=== PATIENT | female | born 1935 | race Hispanic/Latino ===

== ENCOUNTER 2018-10-31 11:30 | Emergency (ER) | payer MEDICARE ==
[2018-10-31 11:37] VITALS: BMI 23.9
[2018-10-31 11:38] VITALS: RESP 18
--- NOTE | 2018-10-31 11:53 | ED PDOC ---
Arrival/HPI - General Chief Complaint: Cough, Cold, Congestion Time Seen by Provider: 10/31/18 11:32 Historian: Patient - History of Present Illness Narrative History of Present Illness (Text): 10/31/18 11:53 A 83 year old female, whose past medical history includes hypertension, presents to the emergency department complaining of cough and rhinorrhia for the past day and a half. Patient reports associated sore throat and notes to taking wal- tussin for symptoms to some relief. Patient notes she initially went to the urgent care but found it was closed , prompting her to go to emergency room. Patient states she received a flu shot and a shingles shot recently. Patient also notes she took her hypertension medication today. Patient denies any fever, chills, shortness of breath, chest pain, myalgia, or any other complaints. PMD: Dr. Jj Time/Duration: 4-6 hours Symptom Onset: Gradual Symptom Course: Improving Activities at Onset: Light Context: Home Past Medical History - Provider Review Nursing Documentation Reviewed: Yes - Infectious Disease Hx of Infectious Diseases: None - Cardiac Hx Hypertension: Yes Hx Pacemaker: No - Neurological Hx Paralysis: No - Hematological/Oncological Hx Blood Transfusions: No Hx Blood Transfusion Reaction: No - Musculoskeletal/Rheumatological Hx Musculoskeletal Disorders: Yes - Gastrointestinal Hx Gastroesophageal Reflux: Yes - Psychiatric Hx Emotional Abuse: No Hx Physical Abuse: No Hx Substance Use: No - Surgical History Hx Hysterectomy: Yes Hx Orthopedic Surgery: Yes (r foot sx) - Anesthesia Hx Anesthesia Reactions: Yes Hx Malignant Hyperthermia: No - Suicidal Assessment Feels Threatened In Home Enviroment: No Family/Social History - Physician Review Nursing Documentation Reviewed: Yes Family/Social History: No Known Family HX Smoking Status: Never Smoked Hx Alcohol Use: Yes (OCCASSIONAL) Hx Substance Use: No Allergies/Home Meds Allergies/Adverse Reactions: Allergies No Known Allergies Allergy (Verified 06/10/12 08:22) Home Medications: Home Meds Medication Instructions Recorded Confirmed Calcium Carbonate/Vitamin D 1 tab PO BID 06/10/12 06/10/12 [Calcium 600 W/Vitamin D] Omeprazole 20 mg PO HS 06/10/12 06/10/12 Aspirin [Aspir-Low] 81 mg PO DAILY 06/11/12 06/11/12 Cholecalciferol (Vitamin D3) [D3-5] 1,000 iu PO DAILY 06/11/12 06/11/12 Psyllium [Metamucil] 1 tbs PO DAILY 06/11/12 06/11/12 Review of Systems - Physician Review All systems were reviewed & negative as marked: Yes - Review of Systems Constitutional: absent: Fevers, Night Sweats ENT: Sore Throat, Rhinorrhea Respiratory: Cough. absent: SOB Cardiovascular: absent: Chest Pain Gastrointestinal: absent: Abdominal Pain Genitourinary Female: absent: Dysuria Musculoskeletal: absent: Arthralgias, Myalgias Skin: absent: Rash Neurological: absent: Headache Psychiatric: absent: Anxiety Physical Exam Vital Signs Reviewed: Yes Vital Signs Temp Pulse Resp BP Pulse Ox 10/31/18 11:37 97.6 F 79 18 137/87 96 Temperature: Afebrile Blood Pressure: Normal Pulse: Regular Respiratory Rate: Normal Appearance: Positive for: Well-Appearing, Non-Toxic Mental Status: Positive for: Alert and Oriented X 3 - Systems Exam Head: Present: Atraumatic, Normocephalic Pupils: Present: PERRL Extroacular Muscles: Present: EOMI Conjunctiva: Present: Normal Mouth: Present: Moist Mucous Membranes Pharnyx: Present: Normal. No: ERYTHEMA, EXUDATE, TONSILS ENLARGED, Peritonsilar Swelling Nose (Internal): Present: Normal Inspection, Rhinorrhea. No: No Active Bleeding Neck: Present: Normal Range of Motion. No: Meningeal Signs Respiratory/Chest: Present: Clear to Auscultation, Good Air Exchange. No: Respiratory Distress, Accessory Muscle Use Cardiovascular: Present: Regular Rate and Rhythm, Normal S1, S2. No: Murmurs Abdomen: No: Tenderness, Distention, Peritoneal Signs Back: Present: Normal Inspection. No: CVA Tenderness Upper Extremity: Present: Normal Inspection. No: Cyanosis, Edema Lower Extremity: Present: Normal Inspection. No: Edema Neurological: Present: GCS=15, CN II-XII Intact, Speech Normal Skin: Present: Warm, Dry, Normal Color. No: Rashes Psychiatric: Present: Alert, Oriented x 3, Normal Insight, Normal Concentration Medical Decision Making ED Course and Treatment: 10/31/18 11:55 Impression: 83 year old female w/ hx of HTN presenting to the emergency complaining of cough and rhinorrhia. Well appearing in NAD. Cough x2d, rhinorrhia, overall improving. Non productive cough, without chills, fevers or night sweats. No meningeal signs on exam, overall well appearing with unremarkable vitals. Went to urgent care today but found it was closed so came to ED. Likely viral URI but will seek xr and swabs. Unlikely flu given no body aches. Pt also notes mild sore throat but no change in phonation, dysphagia, odynophagia or any other neck complaints. Uvula midline and no signs of erythema noted. Unremarkable exam. Plan: -- Chest X-Ray -- Rapid strep test -- Influenza test -- Reassess and disposition Prior Visits: Notes and results from previous visits were reviewed. Progress Notes: 10/31/18 12:27 Xray, Serolgies unremarkable likely bronchitis, will give scripts for home and d/c home with return indications and followup pt agreeable to plan. - Scribe Statement The provider has reviewed the documentation as recorded by the Scribe Lalita Olson All medical record entries made by the Scribe were at my direction and personally dictated by me. I have reviewed the chart and agree that the record accurately reflects my personal performance of the history, physical exam, medical decision making, and the department course for this patient. I have also personally directed, reviewed, and agree with the discharge instructions and disposition. Disposition/Present on Arrival - Present on Arrival Any Indicators Present on Arrival: No History of DVT/PE: No History of Uncontrolled Diabetes: No Urinary Catheter: No History of Decub. Ulcer: No History Surgical Site Infection Following: None - Disposition Have Diagnosis and Disposition been Completed?: Yes Diagnosis: Bronchitis Disposition: HOME/ ROUTINE Disposition Time: 12:28 Patient Problems: Current Active Problems Problem Status Onset Bronchitis Acute Condition: GOOD Discharge Instructions (ExitCare): Acute Bronchitis Additional Instructions: LISA EVERETT, thank you for letting us take care of you today. Your provider was Basil Samayoa and you were treated for bad cough. The emergency medical care you received today was directed at your acute symptoms. If you were prescribed any medication, please fill it and take as directed. It may take several days for your symptoms to resolve. Return to the Emergency Department if your symptoms worsen, do not improve, or if you have any other problems. Please contact your doctor or call one of the physicians/clinics you have been referred to that are listed on the Patient Visit Information form that is included in your discharge packet. Bring any paperwork you were given at discharge with you along with any medications you are taking to your follow up visit. Our treatment cannot replace ongoing medical care by a primary care provider outside of the emergency department. Thank you for allowing the [x+1] team to be part of your care today. If you had an X-Ray or CT scan: A Radiologist will review the ED reading if any change in treatment is needed we will contact you. If you had a blood, urine, or wound culture: It will take several days for the results, if any change in treatment is needed we will contact you. If you had an STI test: It will take 48 hours for the results. Please call after 1 week if you have not heard back. Prescriptions: Azithromycin [Z-Zeferino] 250 mg PO DAILY #6 tab Referrals: James Jj MD [Staff Provider] - Follow up with primary Forms: [employer] (Pashto)
[2018-10-31 12:23] LABS: INFLUENZA A B NEGATIVE FOR FLU A/B (NEGATIVE)
[2018-10-31 12:50] VITALS: BP 146/79; PULSE 70; TEMP 98.3; O2SAT 97
--- NOTE | 2018-10-31 14:30 | RAD ---
Date of service: 10/31/2018 HISTORY: Cough COMPARISON: No prior. TECHNIQUE: Chest PA and lateral FINDINGS: LUNGS: Lung liu are mildly hyperinflated; rule out underlying chronic changes of COPD. There appears to be some chronic atelectatic and/or scarring changes in the left lower lung field.. Mild biapical pleural thickening. PLEURA: No significant pleural effusion identified. No pneumothorax apparent. CARDIOVASCULAR: Minimal aortic atherosclerotic calcification present. Heart appears enlarged. No pulmonary vascular congestion. OSSEOUS STRUCTURES: Mild multilevel degenerative spondylosis of the thoracic spine. Mild chronic anterior wedge and fish-mouth endplate deformities are present at several levels. VISUALIZED UPPER ABDOMEN: Normal. OTHER FINDINGS: None. IMPRESSION: Lung liu are mildly hyperinflated; rule out underlying chronic changes of COPD. There appears to be some chronic atelectatic and/or scarring changes in the left lower lung field.. Mild biapical pleural thickening.
== END 2018-10-31 12:48 | disposition home or self-care (01) ==
LOC: ED 11:30
DX: J40 Bronchitis, not specified as acute or chronic (principal); I10 Essential (primary) hypertension